=== PATIENT | female | born 1945 | race Caucasian/White ===

== ENCOUNTER → 2016-03-25 | Outpatient (CLI) | payer OTHER ==
--- NOTE | 2016-03-25 12:16 | MA ---
Bilateral Digital Screening Mammograms With iCAD Clinical Indications: Routine screening mammograms. Technique: Digital cephalocaudal and mediolateral oblique projections were obtained. This examinati on was processed by the iCAD computer-aided detection system. Comparison: 2014, 2011, 2010. Breast Density: 3: 50 to 75%. Findings: CAD was reviewed. Indeterminate cluster of microcalcifications upper-outer right breast for which additional imaging is recommended. Left breast demonstrates no suspicious microcalcifications. Both breasts demonstrate no new dominant densities or architectural distortion. Impressions 1. BI-RADS 0: Needs additional imaging evaluation. 2. Indeterminate microcalcifications upper-outer right breast. Recommendation: Additional diagnostic mammographic views with magnification views of the upper-outer quadrant indeterminate microcalcifications. [facility] will send a result letter to the patient.
== END ==
LOC: BRMIMAGING 10:35
DX: Z12.31 Encounter for screening mammogram for malignant neoplasm of breast (principal)
CPT/HCPCS: G0202

== ENCOUNTER → 2016-04-07 | Outpatient (CLI) | payer OTHER ==
--- NOTE | 2016-04-07 09:23 | MA ---
Right Unilateral Digital Diagnostic Mammogram History: Microcalcifications on screening mammograms. Comparison: Mammograms through 2007. Technique: Spot magnification CC and true lateral and true lateral views. Images were reviewed with iCAD. Findings: There are indeterminate microcalcifications in the upper outer right breast. The calcificat ions annotated on the MLO view on the screening mammogram correspond to benign microcalcifications in ferior to the calcifications of interest on the true lateral view today. Impression: Indeterminate microcalcifications in the upper outer right breast. BI-RADS 4: Suspicious Finding. Recommendations: Stereotactic biopsy of the upper outer right breast calcifications is recommended. I mages were reviewed with the patient. Findings and recommendations were discussed with the patient. [facility] will send a result letter to the patient. Dr. Robson Mayer reviewed the study and agrees with the findings and recommendations. Findings discussed with Luis E Pardo today at 920 hours. The need for an order was conveyed. An order for stereotactic right breast biopsy can be faxed to [phone].
== END ==
LOC: BRMIMAGING 08:28
DX: R92.0 Mammographic microcalcification found on diagnostic imaging of breast (principal)
CPT/HCPCS: G0206

== ENCOUNTER → 2016-04-22 | Day surgery (SDC) | payer OTHER ==
[~2016-04-22] MED LIST: THROMBIN (RECOMBINANT) 5,000 UNIT VIAL TP ONE
--- NOTE | 2016-04-22 16:04 | MA ---
Diagnostic Digital Mammogram Right Breast Reason for examination: Follow up stereotactic right breast biopsy. Technique: Craniocaudal and oblique views were obtained. Findings: The Suros marker is deployed just caudal to the biopsy site in the upper outer right breast . The targeted microcalcifications were essentially entirely removed.. Impression: The Suros marker is deployed just caudal to biopsy site. We will await pathologic results.
--- NOTE | 2016-04-22 16:06 | MA ---
Stereotactic Core Biopsy Right Breast History: Suspicious microcalcifications right breast. Crosscutting Measure #226 : Current tobacco user no. Technique: Following informed consent (which included infection, bleeding and failure to obtain suffi cient specimens for diagnosis), the patient was placed prone on the stereotactic biopsy table and the breast was suspended through the open space in the table. A craniocaudal approach was employed. The skin was then prepped in sterile fashion. Local anesthesia was achieved with 1% lidocaine, lidoca ine mixed with epinephrine and Marcaine. A small skin bart was placed on the skin surface through which the 9 gauge Suros vacuum-assisted core biopsy needle was advanced. Following confirmation of correct placement, core biopsy samples were ob tained. Specimen radiograph demonstrates calcifications. A Suros sterile clip was then placed in the biopsy bed. A single mammographic image is obtained confi rming the clip deployment. The needle was removed and hemostasis was achieved with manual compression . The specimen was sent to the Laboratory. The patient was sent for post procedural mammogram to docu ment clip placement and to look for postprocedural hematoma. She was then discharged without complica tion, with follow up instructions. Impression: Successful stereotactic core biopsy of small cluster of microcalcifications in the upper outer right breast.. We will await pathologic results.
== END | disposition home or self-care (01) ==
LOC: FIMAGING 10:51
PROVIDERS: ATTEND Family Medicine
PROC: 0HBT3ZX Excision of Right Breast, Percutaneous Approach, Diagnostic (ICD-10-PCS; principal; 2016-04-22)
DX: N60.11 Diffuse cystic mastopathy of right breast (principal); Z88.0 Allergy status to penicillin
CPT/HCPCS: G0206